=== PATIENT | male | born 1950 | race Caucasian/White ===

== ENCOUNTER → 2022-01-22 | Outpatient (REF) ==
[~2022-01-22] MED LIST: ASPI81TA86 PO; ATOR80TA59 PO; CARV6.25 PO; DERM1TAB2 PO; FOLI400T13 PO; LEVO100T5 PO; METF-839 PO; MULT-90 PO; VITA500C24 PO
== END ==
LOC: M PLAIMG 14:11
PROVIDERS: ATTEND Internal Medicine
DX: C34.90 Malignant neoplasm of unspecified part of unspecified bronchus or lung (principal)